=== PATIENT | female | born 1975 | race Caucasian/White ===

== ENCOUNTER → 2016-09-19 | Outpatient (CLI) | payer MEDICAID | LOC: RAD 12:27 | PROVIDERS: ATTEND Obstetrics & Gynecology | DX: M54.5 Low back pain (principal); N39.0 Urinary tract infection, site not specified | CPT/HCPCS: 74177; 82565 ==

== ENCOUNTER 2018-04-16 13:56 | Emergency (ER) | payer SELFPAY ==
[2018-04-16 15:22] LABS: APPEARANCE,URINE CLEAR; BILIRUBIN,URINE NEGATIVE (NEGATIVE); COLOR,URINE YELLOW; GLUCOSE, URINE NEGATIVE (NEGATIVE); KETONES,URINE NEGATIVE (NEGATIVE); LEUKOCYTE ESTERASE,URINE NEGATIVE (NEGATIVE); NITRITE,URINE NEGATIVE (NEGATIVE); PROTEIN,URINE NEGATIVE (NEGATIVE); URINE SPECIFIC GRAVITY 1.015; UROBILINOGEN,URINE NEGATIVE mg/dL (<2.0)
--- NOTE | 2018-04-16 15:46 | ER Document Report ---
ED Medical Screen (RME) - General Chief Complaint: Abdominal Pain Stated Complaint: LOW BACK PAIN, ABDOMINAL PAIN Time Seen by Provider: 04/16/18 14:42 Mode of Arrival: Ambulatory Information source: Patient TRAVEL OUTSIDE OF THE [place] IN LAST 30 DAYS: No - HPI Patient complains to provider of: Back pain Onset: Other - There is an otherwise healthy 42-year-old female who presents for evaluation of low back pain as well as occasional abdominal pain and left foot pain which she has suffered for the last 2 months exacerbated after bending forward while in the shower. She denies any loss of consciousness loss of bladder or bowel continence any focal numbness or weakness in the lower extremities or any other symptoms than the discomfort she is having in the back. She is never had anything like this in the past she has been using Motrin and Tylenol to try and help with the symptoms intermittently and they seem to help but not that long. She also notes that some of the symptoms above her pelvis could potentially be a urinary tract infection is difficult to assess which is which at this point. - Related Data Allergies/Adverse Reactions: latex Allergy (Verified 04/16/18 14:42) Sulfa (Sulfonamide Antibiotics) Allergy (Verified 04/16/18 14:42) Past Medical History - General Information source: Patient - Social History Chew tobacco use (# tins/day): No Frequency of alcohol use: Rare Drug Abuse: None Renal/ Medical History: Denies: Hx Peritoneal Dialysis Past Surgical History: Reports: Hx Cholecystectomy Review of Systems - Review of Systems -: Yes All other systems reviewed and negative Physical Exam - Vital signs Vitals: Temp Pulse Resp BP Pulse Ox 98.2 F 88 14 125/72 95 04/16/18 14:04 04/16/18 14:04 04/16/18 14:04 04/16/18 14:04 04/16/18 14:04 - General General appearance: Appears well, Alert - HEENT Head: Normocephalic, Atraumatic Eyes: Normal Pupils: PERRL - Respiratory Respiratory status: No respiratory distress Chest status: Nontender Breath sounds: Normal Chest palpation: Normal - Cardiovascular Rhythm: Regular Heart sounds: Normal auscultation Murmur: No - Abdominal Inspection: Normal Distension: No distension Bowel sounds: Normal Tenderness: Nontender Organomegaly: No organomegaly - Back Back: Tender - Tenderness in the paraspinal muscles of the lumbar spine as well as tenderness to the gluteus medius gluteus ca most prominent along the left side - Extremities General upper extremity: Normal inspection, Nontender, Normal color, Normal ROM , Normal temperature General lower extremity: Other - Positive straight leg raise Normal gait Normal get up and go test - Neurological Neuro grossly intact: Yes Cognition: Normal Orientation: AAOx4 Mathieu Coma Scale Eye Opening: Spontaneous Mathieu Coma Scale Verbal: Oriented Mathieu Coma Scale Motor: Obeys Commands [place] Coma Scale Total: 15 Speech: Normal Motor strength normal: LUE, RUE, LLE, RLE Sensory: Normal - Psychological Associated symptoms: Normal affect, Normal mood Course - Re-evaluation Re-evalutation: 04/16/18 21:34 Patient with atraumatic low back pain 2 months prior which is persisted there since despite conservative management measurements at home. Has not seen anybody else for this information. As this patient is a remarkably low risk for any of the more serious underlying causes of low back pain including epidural abscess, cauda equina syndrome compressive lesion or other cause do not believe she warrants further investigation at this time such as but not limited to blood work or imaging. We will obtain a urinalysis as she does note she has had issues with urinary tract infections prior. She does not have any midline tenderness in the spine is mostly bilateral in the sides she does note that she has plantar fasciitis in the left lower extremity which could potentially be causing an ataxic gait occasionally causing her back to hurt did note that this is very possible as gait instability and imbalance could cause back pain. We did talk about potential follow-up options for her the importance of strengthening, weight loss and outpatient investigation. She does not have any symptoms to suggest underlying cauda equina syndrome. - Vital Signs Vital signs: Temp Pulse Resp BP Pulse Ox 98.2 F 89 13 126/72 H 98 04/16/18 16:19 04/16/18 16:19 04/16/18 16:19 04/16/18 16:19 04/16/18 16:19 - Laboratory Laboratory results interpreted by me: 04/16/18 15:05 Urine Blood SMALL H Doctor's Discharge - Discharge Clinical Impression: Plantar fasciitis Back pain Qualifiers: Back pain location: low back pain Chronicity: chronic Back pain laterality: bilateral Sciatica presence: with sciatica Sciatica laterality: bilateral sciatica Qualified Code(s): M54.42 - Lumbago with sciatica, left side Condition: Good Disposition: HOME, SELF-CARE Instructions: Low Back Pain ([facility]), Sciatica ([facility]) Additional Instructions: Your seen today in the emergency department for your back pain as well as your urinary symptoms. He had a physical exam as well as tests of your urine. Your urine is not infected at this time. Use the referral to orthopedics that I have provided you. Use the cream that I have prescribed to you as needed for your low back pain. Return in case you have any worsening low back pain, you urinate on yourself or cannot control your bowels or you are unable to walk. Use 1 g of Tylenol as frequently as 4 times a day as well to help with your pain. Use 400 mg of ibuprofen as many as 4 times a day to help with your symptoms. Use a cold water bottle under your foot with plantar fasciitis to help with your pain. Prescriptions: Diclofenac Sodium [Voltaren] 100 gm TP BID PRN #2 gel..gm. PRN Reason: For Back Pain Forms: Special Work Note Referrals: MARQUES KATE MD [ACTIVE STAFF] - Follow up as needed MIKE RENTERIA DO [ACTIVE STAFF] - Follow up as needed
[2018-04-16 16:37] VITALS: BP 126/72
== END 2018-04-16 17:07 | disposition home or self-care (01) ==
LOC: ER 13:56
DX: M72.2 Plantar fascial fibromatosis (principal); M54.42 Lumbago with sciatica, left side; R10.9 Unspecified abdominal pain; Z91.040 Latex allergy status; Z88.2 Allergy status to sulfonamides; Z90.49 Acquired absence of other specified parts of digestive tract
CPT/HCPCS: 81001; 99284